=== PATIENT | female | born 1960 | race Caucasian/White ===

== ENCOUNTER 2018-05-16 12:30 | Observation (INO) | payer MEDICARE ==
[~2018-05-16] VITALS: Ht 165.1 cm; Wt 57.2 kg
[~2018-05-16 12:30] MED LIST: VITAMIN D400 UNIT PO
[2018-05-16] MEDS ORDERED: ONDANSETRON HCL INJ 2 MG/ML VIAL IV STA (12:44)
[2018-05-16] MEDS: NITROGLYCERIN 0.4 MG SUBL SL PRN ×2 (12:55→14:27)
--- NOTE | 2018-05-16 13:13 | NUR ---
IV attempted x 2, pt. tolerated, per Dr. Ron rodriguez to give PO zofran instead
[2018-05-16] MEDS ORDERED: ONDANSETRON HCL 4 MG ORAL DISINTEGRATING TAB PO ONE (13:15)
--- NOTE | 2018-05-16 13:46 | Diagnostic Imaging Report ---
Examination: Single AP view of the chest. COMPARISON: None. INDICATION: Chest pain DISCUSSION: The patient is rotated to the left. The lungs are well-inflated and without focal consolidation, pleural effusion, or pneumothorax. Cardiomediastinal contour and pulmonary vasculature are within normal limits no acute osseous abnormality. IMPRESSION: 1. No acute cardiopulmonary abnormalities. Signed by: Dr. Huang Dennis M.D. on 05/16/2018 1:43 PM
[2018-05-16] MEDS ORDERED: ASPIRIN 81 MG CHEW TAB PO ONE (14:15)
--- OUTSIDE RECORDS SUMMARY | 2018-05-16 14:52 | XMS REPORT ---
Author Author [facility] Address Unknown Phone Unavailable Care Team Providers Care Etcher [employer]engra[employer] Name Role Phone Walter ELLIOTT Unavailable Unavailable Problems This patient has no known problems. Allergies, Adverse Reactions, Alerts This patient has no known allergies or adverse reactions. Medications This patient has no known medications. Results Test Description Test Time Test Comments Text Results Atomic Results Result Comments CXR 1 [facility] 2018-05-16 13:41:00 [place] [address] Patient Name: GT SHELBY MR #: [id number] : 1960 Age/Sex: 58/F Req #: [id number] Adm Physician: Ordered by: MARTY ELLIOTT MD Report #: [id number] Location: [facility] Room/Bed: Procedure: [id number] HOPD/CXR 1 [facility] Exam Date: 05/16/18 Exam Time: 1325 REPORT STATUS: Signed Examination: Single AP view of the chest. COMPARISON: None. INDICATION: Chest pain DISCUSSION: The patient is rotated to the left. The lungs are well-inflated and without focal consolidation, pleural effusion, or pneumothorax. Cardiomediastinal contour and pulmonary vasculature are within normal limits no acute osseous abnormality. IMPRESSION: 1. No acute cardiopulmonary abnormalities. Signed by: Dr. Chris Montoya M.D. on 05/16/2018 1:43 PM Dictated By: CHRIS MONTOYA MD [id number] Transcribed By: REMEDIOS on 05/16/18 1343 COPY TO: MARTY ELLIOTT MD
[2018-05-16] MEDS ORDERED: ACETAMINOPHEN 325 MG TAB PO ONE (17:45)
--- NOTE | 2018-05-16 18:00 | NUR ---
pt. going to room 203, called and s/w Sosa, report given
--- NOTE | 2018-05-16 18:15 | NUR ---
called [facility] for pick-up and transport to [facility], ETA 35-40 minutes
--- NOTE | 2018-05-16 20:10 | NUR ---
received pt from [facility] to room 203, AAOx3, resp even and unlabored, c/o of chest pain 5\10, skin intact, pt is deaf and uses sign language and writing for communication able to make her needs known, family at the bedside, Tele box#2 with pt and pt running SR, 24G to right wrist patent and intact, bed in lowest and locked position with call light in reach, instructed to call when assistance needed, bed alarm on
[2018-05-16 20:38] LABS: CREATINE KINASE MB 0.8 ng/mL (0-5.0)
[2018-05-16 21:20] VITALS: BP 98/56
[2018-05-16 23:40] VITALS: BP 98/56
[2018-05-17] VITALS (7 sets, daily range): BP systolic 95–135; BP diastolic 50–62
[2018-05-17 05:34] LABS: CREATINE KINASE MB 0.7 ng/mL (0-5.0)
[2018-05-17 06:22] LABS: CHOL/HDL RATIO 2.4 (3.0-3.6)
[2018-05-17] MEDS ORDERED: ACETAMINOPHEN 325 MG TAB PO PRN (07:45)
[2018-05-17 07:59] LABS: BASOPHILS # (AUTO) 0.1 (0.0-0.1); BASOPHILS % 0.5 % (0.0-1.0); EOSINOPHILS # (AUTO) 0.4 (0.0-0.4); EOSINOPHILS % 3.5 % (0.0-6.0); HEMOGLOBIN 11.8 g/dL (12.0-16.0); LYMPHOCYTES # (AUTO) 1.3 (1.0-3.2); LYMPHOCYTES % 12.7 % (18.0-39.1); MEAN CORPUSCULAR HEMOGLOBIN 30.8 pg (28-32); MEAN CORPUSCULAR HGB CONC 31.9 g/dL (31-35); MEAN CORPUSCULAR VOLUME 96.6 fL (81-99); MONOCYTES # (AUTO) 1.5 (0.2-0.8); MONOCYTES % 14.7 % (4.4-11.3); NEUTROPHILS # (AUTO) 6.8 (2.1-6.9); NEUTROPHILS % 68.2 % (38.7-80.0); PLATELET COUNT 251 x10e3/uL (140-360); RED BLOOD COUNT 3.83 x10e6/uL (3.6-5.1); RED CELL DISTRIBUTION WIDTH 13.6 % (11.7-14.4)
[2018-05-17 08:21] LABS: ANION GAP 15.5 mmol/L (8-16); BLOOD UREA NITROGEN 12 mg/dL (7-26); BUN/CREATININE RATIO 15 (6-25); CALCIUM 10.1 mg/dL (8.4-10.2); CARBON DIOXIDE 21 mmol/L (22-29); CHLORIDE 105 mmol/L (98-107); EST GLOMERULAR FILTRATION RATE > 60 ML/MIN (60-); GLUCOSE 100 mg/dL (74-118); MAGNESIUM 2.4 MG/DL (1.3-2.1); POTASSIUM 4.5 mmol/L (3.5-5.1); SODIUM 137 mmol/L (136-145)
--- NOTE | 2018-05-17 10:42 | NUR ---
CM SPOKE TO PATIENT AT BEDSIDE REGARDING LAMA LETTER. LAMA LETTER GIVEN WITH EXPLANATION. ORIGINAL SIGNED AND PLACED IN CHART; COPY OF ORIGINAL DOCUMENT GIVEN TO PATIENT AT BEDSIDE AND PLACED IN CARE TRANSITION FOLDER. CM CONTACT INFORMATION GIVEN TO PATIENT FOR ANY NEEDS OR CONCERNS. PATIENT WITH NO FURTHER QUESTIONS.
--- NOTE | 2018-05-17 13:59 | NUR ---
CASE MANAGEMENT INITIAL ASSESSMENT Crop Scout to bedside to discuss plan of care with patient/family. CM/SW role and care transitions discussed. Anticipated discharge plan discussed along with duration of care. CM discussed patients right to make decisions in care. CM/SW work hours given. Patient lives: PATIENT LIVES IN [address] [facility] IN [place], [place] WITH . PATIENT AND PATIENT DEAF Admit/Transfer: ED POA/Emergency contact: BROTHER: ATIYA SHELBY: [phone] Current/Previous Home Health: NO PCP/Follow-up Care: PATIENT DOES NOT CURRENTLY HAVE PCP Current/Previous DME: NONE AT THIS TIME Other Services: PATIENT HEARING IMPAIRED Employment Status: UNEMPLOYED Areas of Concerns: NONE AT THIS TIME Referral Needs: NONE AT THIS TIME Education Needs: NONE IMM/LAMA given and signed (if applicable): LAMA Goal for discharge: DISCHARGE HOME WITH NO NEEDS CM left business card at the bedside with contact information. Name and number was also written on the patients whiteboard. Patient verbalized understanding of discussion. CM will follow-up with ongoing discharge and transition of care needs.
[2018-05-17] MEDS ORDERED: KETOROLAC TROMETHAMINE 30 MG/ML VIAL IV ONE (14:15)
[2018-05-17] MEDS ORDERED: CLOPIDOGREL BISULFATE 300 MG TAB-DO NOT STOCK PO ONE (16:30)
[2018-05-17] MEDS ORDERED: CLOPIDOGREL BISULFATE 75 MG TAB PO ONE (16:45)
--- NOTE | 2018-05-17 23:23 | Consultation ---
DATE OF CONSULTATION: May 17, 2018 CARDIAC CONSULTATION REASON FOR THE CONSULTATION: Chest pain. HISTORY: This is delightful 58-year-old lady who was having retrosternal chest pain, radiating to the back, to her shoulder for the last 3 days. Dull, vague, cannot describe it. It seems there is no relation to activity. There is no trauma or any injury. There is no recent travel. Pain she cannot describe it, dull. She is to a certain extent active and at her level of activity, there is no angina, although she is to a certain extent sedentary. She is able to take care of her, work at home without angina or worsening of this chest pain. There is no recent cold or flu-like illness. She cannot describe this pain. There is no cough, no hemoptysis. There is no pleuritic nor pericarditic component of chest pain. HOME MEDICATIONS: Vitamin D3. ALLERGIES: SULFA, TETRACYCLINE, PENICILLIN. PAST MEDICAL HISTORY: 1. Hysterectomy. 2. Deaf. 3. She does have allergies and rash for no reason suddenly and they disappear suddenly. FAMILY HISTORY: No family history of premature coronary artery disease. Of note, her brother had cardiac tumor and surgery for cardiac tumor year ago. No children. PHYSICAL EXAMINATION: GENERAL: Very nice lady. VITAL SIGNS: Height of 5 feet 5 inches, weight of 126 pounds. Blood pressure 105/60, heart rate of 70, respiratory rate of 18. Afebrile. HEENT: Patient is deaf. NECK: No elevation of jugular venous pulsation. No bruit. CHEST: Clear to auscultation and percussion with good lung expansion. HEART: PMI fifth left intercostal space. Normal first and second heart sounds. Soft flow murmur. Straight back syndrome like murmur. ABDOMEN: Soft with no organomegaly. No abdominal bruits. EXTREMITIES: No cyanosis, no clubbing, no edema. No delay between pulses. NEUROLOGIC: Awake, alert, oriented. No motor or sensory deficit. LAB DATA: BUN of 12, creatinine of 0.8. Sodium of 137, potassium of 4.5. White blood cell count of 9.9, hemoglobin of 11.8, hematocrit 37%, platelet count of 251,000. Triglycerides of 56, cholesterol of 216, HDL of 90, LDL of 115. IMPRESSION AND PLAN: Chest pain, sounds to be atypical for coronary artery disease and for pulmonary embolism. There are no signs to suggest aortic disease with the exception of patient deaf and possibly a little bit of high-arched palate. Cardiac-barnes, will recommend nuclear cardiac stress test. Will check her echocardiogram. X-ray by report showed no dilatation of aortic root. Will do CT scan of the chest since we do not have reason for this chest pain. Case discussed and explained to the patient and her . Her son-in-law was of great help communicating with them. Will follow patient's progression with you and would like to thank you for your kind referral. Job#: [id number]
[2018-05-18] VITALS: BP 132/66
--- NOTE | 2018-05-18 00:34 | Diagnostic Imaging Report ---
EXAM: CT CHEST W INDICATION: Retrosternal chest pain COMPARISON: None TECHNIQUE: Multidetector CT scanning of the chest was performed. Coronal and sagittal multiplanar reformations were obtained. Dose modulation, iterative reconstruction, and/or weight based adjustment of the mA/kV was utilized to reduce the radiation dose to as low as reasonably achievable PE protocol performed. IV Contrast: 100 cc Isovue-370 CTDIvol has been reviewed. It is below the limits set by the Radiation Protocol Committee (RPC). FINDINGS: LUNGS AND AIRWAYS: The trachea and major bronchi are unremarkable. No consolidations or edema. PLEURA: No effusions or pneumothorax. HEART, MEDIASTINUM, VESSELS: The heart is within normal size limits. No abnormal pericardial effusion. No mediastinal mass or lymphadenopathy. No evidence of a pulmonary embolism. UPPER ABDOMEN: No acute findings. MUSCULOSKELETAL: Distended right shoulder bursa. IMPRESSION: Normal CT of the chest No evidence of a pulmonary embolus. Signed by: Dr. Ermelinda Balbuena M.D. on 05/18/2018 12:31 AM
[2018-05-18 04:00] VITALS: BP 121/59
[2018-05-18 04:52] LABS: BASOPHILS # (AUTO) 0.1 (0.0-0.1); BASOPHILS % 0.9 % (0.0-1.0); EOSINOPHILS # (AUTO) 0.7 (0.0-0.4); EOSINOPHILS % 9.9 % (0.0-6.0); HEMATOCRIT 33.4 % (34.2-44.1); LYMPHOCYTES # (AUTO) 1.4 (1.0-3.2); MEAN CORPUSCULAR HEMOGLOBIN 30.7 pg (28-32); MEAN CORPUSCULAR HGB CONC 32.9 g/dL (31-35); MONOCYTES # (AUTO) 0.9 (0.2-0.8); MONOCYTES % 13.2 % (4.4-11.3); NEUTROPHILS # (AUTO) 3.9 (2.1-6.9); NEUTROPHILS % 55.7 % (38.7-80.0); PLATELET COUNT 252 x10e3/uL (140-360); RED BLOOD COUNT 3.58 x10e6/uL (3.6-5.1); RED CELL DISTRIBUTION WIDTH 13.3 % (11.7-14.4)
[2018-05-18 04:54] LABS: MEAN CORPUSCULAR VOLUME 93.3 fL (81-99)
[2018-05-18 05:19] LABS: ALANINE AMINOTRANSFERASE 12 IU/L (0-55); ALKALINE PHOSPHATASE 56 IU/L (40-150); ANION GAP 9.9 mmol/L (8-16); BLOOD UREA NITROGEN 13 mg/dL (7-26); BUN/CREATININE RATIO 17 (6-25); CALCIUM 9.3 mg/dL (8.4-10.2); CARBON DIOXIDE 24 mmol/L (22-29); CHLORIDE 102 mmol/L (98-107); CREATININE, SERUM 0.76 mg/dL (0.57-1.11); EST GLOMERULAR FILTRATION RATE > 60 ML/MIN (60-); GLUCOSE 103 mg/dL (74-118); POTASSIUM 3.9 mmol/L (3.5-5.1); SODIUM 132 mmol/L (136-145)
[2018-05-18 05:42] LABS: THYROID STIMULATING HORMONE 0.916 uIU/mL (0.350-4.940)
[2018-05-18] MEDS ORDERED: SODIUM CHLORIDE 0.9% 50ML 50 ML ONE (06:11)
[2018-05-18] MEDS ORDERED: IOPAMIDOL 370 MG/ML 200 ML INFUS..BTL INJ ONE (06:12)
[2018-05-18 07:49] VITALS: BP 125/60
[2018-05-18 08:00] VITALS: BP 125/60
[2018-05-18] MEDS ORDERED: REGADENOSON 0.4 MG/5 ML SYR IV ONE (10:09)
[2018-05-18 11:59] VITALS: BP 110/59
--- NOTE | 2018-05-18 15:36 | Discharge Summary ---
PRIMARY CARE DOCTOR: Dr. Judd Fragoso with [facility]. FINAL DIAGNOSIS: Atypical chest pain, possibly due to gastrointestinal or musculoskeletal etiology. SECONDARY DIAGNOSIS: Likely reactive headache, resolved after Toradol. CONSULTANTS: Dr. Dyson, cardiology. PROCEDURES/STUDIES PERFORMED 1. CTA of the chest was negative for pulmonary embolism. 2. Echocardiogram was unremarkable. 3. Stress test was normal. HISTORY: Per [facility] HOSPITAL COURSE: Unfortunately, this was a very difficult history due to the fact that the patient is deaf. We went ahead and proceeded with cardiac workup, which was unremarkable. No acute myocardial infarction per negative troponins. Patient will go home today. She will follow up with her primary care doctor in 1 week. Patient was seen and examined today. CONDITION ON DISCHARGE: Stable. DISCHARGE MEDICATIONS: Please see medication reconciliation form. KECIA BENTLEY M.D. Job#: [id number] [place] cc:JUDD FRAGOSO MD
[2018-05-18 16:00] VITALS: BP 124/59
--- NOTE | 2018-05-18 17:30 | NUR ---
PIV x2 removed with tip intact. denied pain upon d/c. escorted to front lobby entrance, pt refused WC and preferred to ambulate. brother in law and also accompanied pt and BIOLOGY SPECIALIST to lobby. patient d/c via private auto. all personal belongings, and d/c instructions in hand at time of d/c.
== END 2018-05-18 17:33 | disposition home or self-care (01) ==
LOC: FSED 12:30 → ERHOLD 14:09 → MED/SURG2 19:49
PROVIDERS: ADMIT Internal Medicine; ATTEND Internal Medicine
DX: R07.89 Other chest pain (principal); H91.90 Unspecified hearing loss, unspecified ear; R51 Headache; Z28.21 Immunization not carried out because of patient refusal
CPT/HCPCS: 36415 ×3; 71045; 71260; 78452; 80048; 80053 ×2; 80061; 82550 ×2; 82553 ×2; 82948; 83735; 84443; 84484 ×2; 85025 ×3; 85379; 93005; 93017; 93306; 99284; A9502; G0378 ×3; J1885; J2405; J2785; Q0162; Q9967